=== PATIENT | male | born 1995 | race Caucasian/White ===

== ENCOUNTER 2016-10-01 16:15 | Emergency (ER) | payer OTHER ==
[2016-10-01 18:40] LABS: CALCIUM 8.7 mg/dL (8.5-10.1); CARBON DIOXIDE 27.3 mmol/L (21-32); CHLORIDE SERUM 98 mmol/L (98-107); CREATININE SERUM 0.7 mg/dL (0.7-1.3); GFR1 > 60 mL/min; GLUCOSE SERUM 308 mg/dL (74-106); POTASSIUM SERUM 3.6 mmol/L (3.5-5.1); SODIUM SERUM 134 mmol/L (136-145)
[2016-10-01 20:27] VITALS: BP 149/76
== END 2016-10-01 20:21 | disposition home or self-care (01) ==
LOC: ED 16:15
PROVIDERS: Emergency Medicine
DX: R10.13 Epigastric pain (principal); R03.0 Elevated blood-pressure reading, without diagnosis of hypertension; R19.7 Diarrhea, unspecified; E11.9 Type 2 diabetes mellitus without complications; Z79.899 Other long term (current) drug therapy
CPT/HCPCS: 82962; J1815; J1885; J7030; Q0162

== ENCOUNTER 2016-10-12 03:15 | Emergency (ER) | payer SELFPAY ==
[2016-10-12 05:28] VITALS: BP 159/94
== END 2016-10-12 05:29 | disposition home or self-care (01) ==
LOC: ED 03:15
DX: I10 Essential (primary) hypertension (principal); J32.0 Chronic maxillary sinusitis; E66.01 Morbid (severe) obesity due to excess calories; E11.9 Type 2 diabetes mellitus without complications
CPT/HCPCS: J1885

== ENCOUNTER 2017-01-22 18:25 | Emergency (ER) | payer OTHER ==
[~2017-01-22] VITALS: Ht 182.9 cm; Wt 148.8 kg
[2017-01-22 20:58] LABS: BASOPHIL % 0.2 % (0-2); PLATELET COUNT 268 x10^3mcL (130-400); RED CELL DISTRIBUTION WIDTH 14.1 % (11.5-14.5)
[2017-01-22 21:05] LABS: CALCIUM 9.2 mg/dL (8.5-10.1); CARBON DIOXIDE 33.5 mmol/L (21-32); CHLORIDE SERUM 101 mmol/L (98-107); CREATININE SERUM 0.7 mg/dL (0.7-1.3); GFR1 > 60 mL/min; GLUCOSE SERUM 102 mg/dL (74-106); POTASSIUM SERUM 3.8 mmol/L (3.5-5.1); SODIUM SERUM 139 mmol/L (136-145)
[2017-01-22 21:11] LABS: ALBUMIN 3.4 g/dL (3.4-5.0); ALKALINE PHOSPHATASE 71 U/L (46-116); ALT/SGPT 39 U/L (16-63); AST/SGOT 21 U/L (15-37); BILIRUBIN TOTAL 0.55 mg/dL (0.20-1.00); CHOLESTEROL 128 mg/dL (<200); CHOLESTEROL/HDL RATIO 3.4; HDL CHOLESTEROL 38 mg/dL (40-60); LIPASE 123 IU/L (73-393); TOTAL PROTEIN, SERUM 8.7 g/dL (6.4-8.2); TRIGLYCERIDES 106 mg/dL (<150)
[2017-01-22 21:35] LABS: FREE T4 1.13 ng/dL (0.76-1.46); FREE THYROXINE INDEX 3.5 ug/dL (1.4-4.5); T4(THYROXINE) 10.4 ug/dL (4.7-13.3)
[2017-01-22 22:23] VITALS: BP 138/41
[2017-01-22 22:44] LABS: UA SPECIFIC GRAVITY 1.025 (1.005-1.035); microscopic required? YES
[2017-01-22 22:45] LABS: urine erythrocyte NEGATIVE (NEGATIVE)
[2017-01-23 08:34] LABS: T3 TOTAL 1.52 ng/mL
== END 2017-01-22 22:23 | disposition home or self-care (01) ==
LOC: ED 18:25
PROVIDERS: Specialist
DX: F41.9 Anxiety disorder, unspecified (principal); I10 Essential (primary) hypertension; E66.9 Obesity, unspecified; E11.9 Type 2 diabetes mellitus without complications
CPT/HCPCS: 36415; 83880; 84439